=== PATIENT | female | born 1955 | race Caucasian/White ===

== ENCOUNTER 2019-03-31 09:48 | Outpatient (CLI) | payer BC, MEDICARE, SELFPAY ==
--- NOTE | 2019-03-31 09:51 | MM_ITS ---
WS: [id number] RIGHT diagnostic DIGITAL MAMMOGRAM WITH CAD and implant views HISTORY: HX OF BREAST CA COMPARISON: 03/29/2018, 03/23/2017 and 03/10/2016 Technique: CC, MLO and ML views. Implant displacement views. Breast composition: There are scattered areas of fibroglandular density. Prepectoral implants are in tact and unchanged. No suspicious mass or calcification within the visible breast tissue. MM/[place] [id number] IMPRESSION: BI-RADS: 2-Benign FOLLOW UP: 1 Year Follow-up
== END 2019-03-31 09:49 | disposition home or self-care (01) ==
PROVIDERS: Family Provider Family Medicine; PCP Family Medicine; Visit Provider Internal Medicine Medical Oncology
DX: Z85.3 Personal history of malignant neoplasm of breast (principal)
CPT/HCPCS: 77065

== ENCOUNTER 2020-01-19 11:14 | Outpatient (CLI) | payer BC, MEDICARE, SELFPAY ==
--- NOTE | 2020-01-19 12:24 | XR_ITS ---
WS: [id number] XR chest 2V* [id number] REASON FOR EXAM: BREAST CANCER/COUGH/PLEURITIC PAIN FINDINGS: No chest x-rays for review since 07/25/2014. Previous left mastectomy with axillary node dissection. There is a large lobulated left lung mass which appears contiguous with the hilum and the pleura in t he axillary region. There appears to be an infiltrative process in the anterior superior left lower l obe. There is a left pleural effusion. The right lung is clear. XR/XR chest 2V* [id number] IMPRESSION: Left lung mass as above. Somewhat unusual for metastatic breast carcinoma. If p atient has significant smoking history would be concerned about second primary, carcinoma of the lung.
--- NOTE | 2020-01-19 18:31 | ONC FU_ITS ---
Dr. Noe Patient Follow-Up Note Patient: Ann-Marie Rice Unit #: [id number]: 1955 Dicatated By: Tiim Noe M.D.Date of Visit:Jan 19, 2020 Onc Med Follow-up/Prog Note Chief Complaint: Breast cancer. 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 She had presented in May 2009 with a palpable mass in her left breast. Mammogram at that time showed a high density spiculated mass at the twelve o???clock position of the left breast, measuring 1.5 cm in maximum diameter. There was felt to possibly be a focal extension of the mass slightly laterally, measuring 0.8 cm. Two additional small nodules were noted anterior to the larger mass, each measuring approximately 0.5 cm. She underwent biopsy of the twelve o???clock position mass on June 18, 2009. At that time, another mass was palpable at the edge or just underneath the areola. It was also removed by excisional biopsy. Pathology on the first nodule showed a grade II infiltrating ductal carcinoma, measuring 1.7 x 1.0 cm. That tumor was ER positive at 98% and CO positive at 100%. It was negative for overexpression of HER2/isha by IHC and by FISH. The second nodule was felt to be consistent with an infiltrating lobular carcinoma. It measured 1.0 x 0.7 cm. The pathology on the first nodule actually showed two separate tumors, one measuring 1.7 x 1.0 and the other 1.0 x 0.7 cm. This was noted to be a grade II infiltrating ductal carcinoma, which was ER positive at 98% and CO positive at 100%. It was negative for HER2/isha by IHC and by FISH. The other nodule was an infiltrating lobular carcinoma. It measured 2.5 cm in maximum diameter. It was ER positive at 94% and CO positive at 97%. It was also negative for expression of HER2/isha. She underwent left modified radical mastectomy on 08/04/2009. There was micrometastatic ductal carcinoma in 1 of 26 axillary lymph nodes. She was given adjuvant chemotherapy with 6 cycles of Adriamycin/cyclophosphamide, which she completed in January of 2010. She was given adjuvant hormonal therapy with anastrozole. She had ongoing problems with musculoskeletal pain following the chemotherapy. I did have her stop the anastrozole for a short period of time, but that had no impact on her symptoms, and she subsequently did resume treatment. During followup, she did opt to undergo a delayed reconstruction. In July 2014 she had presented to the emergency room with an itchy, erythematous skin eruption. The appearance was consistent with an allergic reaction, which I felt was most likely due to anastrozole. She stopped the medication, and she was treated with steroid. However, the skin eruption did not improve, and she then developed multiple other complaints, including chest congestion, cough, and low-grade fever. Chest xray showed diffuse infiltrate consistent with fluid or pneumonitis. At that point she was admitted to the hospital. She did show some improvement on empiric antibiotic therapy. A skin biopsy showed just mild, nonspecific inflammation. Her serology studies, though, did come back positive for mycoplasma pneumoniae, with elevation of both IgG and IgM antibody titers. She did complete a full course of antibiotic therapy. She had restarted anastrozole when it became clear that her skin eruption was not medication related. She stopped it in January 2015 after completing 5 years of treatment. She was then followed on observation/expectant management. She has otherwise been in good health. She has hypertension, and she has a history of diverticulitis. She also had evidence of osteoporosis on her bone density study. She has a history of smoking 1 pack of cigarettes daily. She had quit for a period of 3 years, but then started again, smoking 1/2 pack per day. She is seen for a scheduled visit. She has not been feeling very good. For the past 3 weeks she has been coughing quite a bit. She has been bringing up some mucus with it. She has been having pain in her left shoulder blade, which is worse when she coughs. She is not short of breath. She does complain that she has no energy. She is still able to do light work at home. Her ECOG score is 1. She says her appetite has not been good, and she has had some nausea associated with the mucus. She has had a 15 pound weight loss. She has not had fever. She has a little bit of hot flashes/sweating. She has some constipation, managed with an herbal laxative. Bladder function has been OK. She also has pain in her lower back and in both legs. She has been having headaches and dizziness. She has no focal neurologic symptoms. Medications: Cyclobenzaprine HCl 1 (5 mg) Tablet Oral b.i.d., Gabapentin 1 (400 mg) Capsule Oral t.i.d., Hydrocodone-Acetaminophen 1 (5-325 mg) Tablet Oral q 6 hours PRN, KlonoPIN 1 (0.5 mg) Tablet Oral daily, Metoprolol Tartrate 1 (50 mg) Tablet Oral b.i.d., PriLOSEC 1 (20 mg) Capsule Delayed Release Oral daily Allergies: codeine and OxyCODONE HCl. Review of Systems: Constitutional - She says she has no energy. She is able to do light work. Appetite is not good. She has not had fever. She has a little bit of hot flashes/sweating. ECOG score is 1. , ENMT - She has some sinus drainage. No mouth sores. No sore throat or difficulty swallowing, Hematologic/Lymphatic - No abnormal bruising or bleeding, Respiratory - No shortness of breath. She has quite a bit of cough. She has pain in the area of the left shoulder blade which is worse when she coughs. No hemoptysis, Cardiovascular - No angina pain. No palpitations, Gastrointestinal - She occasionally has nausea, attributable to mucus. No heartburn or acid reflux. She has constipation, which he manages with an herbal laxative. No blood in the stool or black stools, Genitourinary (F) - No dysuria or hematuria. No urinary frequency. No urgency or incontinence, Musculoskeletal - She has been having pain in the left shoulder blade. She also has pain in her lower back and in both legs, Integumentary - No skin rash, Neurologic - Recently she has had headaches and dizziness. No numbness or tingling. No other focal neurologic symptoms, Psychiatric - She is having some anxiety. She sometimes has difficulty sleeping. Vital Signs: Performed on Jan 19, 2020 11:25 Height - 62.00 in Weight - 159.4 lbs (LOW) BSA - 1.74 sq.m BMI - 29.15 Temperature - 98.7 F Pulse - 84 /min Respiration - 24 /min BP - 114/69 mm(hg) O2 Sat - 95 % (LOW) Pain - 7 Physical Examination: Constitutional - She looks good generally, Eyes - Sclerae nonicteric. Conjunctivae clear, ENMT - No lesions noted in the oral cavity, Hematologic/Lymphatic - No cervical or clavicular adenopathy, Respiratory - Lungs are clear with good air movement bilaterally, Cardiovascular - Heart rhythm is regular. There is no murmur, gallop, or rub noted, Breasts - The right breast shows no mass. There are no lesions noted in the left chest wall/reconstruction. There is no axillary adenopathy, Abdomen - Soft. Liver and spleen are not enlarged. There is no abdominal mass or ascites noted and there is no inguinal adenopathy, Back/Spine - There is some mild tenderness over the thoracic spine and she also has tenderness over the left scapula, Extremities - No edema, Neurologic - No focal neurologic deficits noted. Lab/Imaging: Test performed on Jan 16, 2020 09:31 Glucose 92 mg/dL Vitamin D (25-Hydroxy) 32 ng/mL BUN 14 mg/dL Creatinine 0.73 mg/dL Cr Clearance (Est) 88.87 mL/min Sodium 134 mmol/L Potassium 4.4 mmol/L Chloride 104 mmol/L CO2 23 mmol/L Calcium 10.0 mg/dL Protein, Total 8.2 g/dL Albumin 3.6 g/dL Bilirubin, Total 0.5 mg/dL Alkaline Phosphatase 79 IU/L AST (SGOT) 17 IU/L ALT (SGPT) 20 IU/L WBC 9.1 10^9/L RBC 4.81 10^12/L HGB 14.7 g/dL HCT 44.8 % MCV 93.1 fl MCH 30.6 pg MCHC 32.8 g/dL RDW 12.6 % Platelet Count 309 10^9/L MPV 10.2 fL Neutrophils (Gran) 6.6 10^9/L Lymphocytes 1.8 10^9/L Monocytes 0.6 10^9/L Eosinophils 0.1 10^9/L Basophils 0.0 10^9/L Manual Lymphocytes 20.0 % Manual Monocytes 6.2 % Manual Eosinophils 1.1 % Manual Basophils 0.5 % Impression: 1. Patient has multifocal invasive cancer of the left breast, stage IIB, ER positive/CO negative and HER-2/isha negative. 2. She underwent left modified radical mastectomy in July 2009. 3. She was given adjuvant chemotherapy with 6 cycles of Adriamycin/cyclophosphamide, completed in January 2010. 4. She then received 5 years of adjuvant hormonal therapy with anastrozole, completed in January 2015. She has since then been followed on observation/expectant management. 5. Her DEXA scan in February 2014 showed evidence of osteopenia with T score -1.6 in the lumbar spine. 6. She had laboratory evidence of vitamin D deficiency. Her other medical illnesses include: 8. Hypertension. 9. Osteoporosis. 10. Diverticulitis. During follow-up she has had some chronic fatigue and chronic musculoskeletal pain. Recently she has had cough with associated pleuritic pain in the area of her left shoulder blade. She also has significant weight loss. Plan: She will be scheduled for a chest xray today. Assuming that is negative, just going to have her continue her regular follow-up with Dr. Thompson. As she is now 10 years out from completion of chemotherapy, I will plan to see her again only as needed. Signed By: Timi Noe M.D. <<Signature on File>>
== END 2020-01-19 11:15 | disposition home or self-care (01) ==
LOC: ONCMED 11:17
PROVIDERS: PCP Family Medicine; Visit Provider Internal Medicine Medical Oncology
DX: Z08 Encounter for follow-up examination after completed treatment for malignant neoplasm (principal); Z85.3 Personal history of malignant neoplasm of breast; R91.8 Other nonspecific abnormal finding of lung field; R05 Cough; R07.81 Pleurodynia; R63.4 Abnormal weight loss; Z68.29 Body mass index [BMI] 29.0-29.9, adult; Z90.12 Acquired absence of left breast and nipple; Z92.23 Personal history of estrogen therapy; M85.88 Other specified disorders of bone density and structure, other site; I10 Essential (primary) hypertension; M81.0 Age-related osteoporosis without current pathological fracture; K57.92 Diverticulitis of intestine, part unspecified, without perforation or abscess without bleeding; Z92.21 Personal history of antineoplastic chemotherapy
CPT/HCPCS: 71046; G0463

== ENCOUNTER 2020-01-21 14:58 | Outpatient (CLI) | payer BC, MEDICARE, SELFPAY ==
--- NOTE | 2020-01-21 15:14 | CT_ITS ---
WS: [id number] CT chest w con* [id number] REASON FOR EXAM: BREAST CANCER IV CONTRAST ADMINISTERED: 95 mL of Omnipaque 300. TOTAL EXAM DLP: 689.[address] scans at [facility] use at least one of these dose optimization techniques: automat ed exposure control; mA and/or kV adjustment per patient size (includes targeted exams where dose is matched to clinical indication); or iterative reconstruction. FINDINGS: 5.7 x 5.7 cm intrapulmonary mass with adjacent lung atelectasis/obstructive pneumonia. The lesion jacqueline ears contiguous with the pleura at the level of the aortic arch. There is a moderate to large pleural effusion. There is a second intrapulmonary mass 2.8 x 2.8 cm in the lateral left lower lobe just below the leve l of the larger mass. There are enlarged lymph nodes in the right hilum and in the aortopulmonary window. The nodes that ca n be measured have a short axis of 2 cm. Both lungs demonstrate moderate central lobar emphysema. The bony thorax is intact. Incidental note is made of a 18 mm low-attenuation lesion in the left lobe of the thyroid the shape o f which is consistent with a benign lesion. CT/CT chest w con* [id number] IMPRESSION: 2 left lung masses with dimensions as above. Atelectasis and obstructive pneumo nitis. Left pleural effusion. Adenopathy as above. The appearance of the neoplasia in the left chest is more suggestive of primary lung cancer with ipsilateral lung metastasis and adenopathy. Breast carcinoma, with this being atypical appearance for chest involvement, is a possibility.
[2020-01-21 16:20] LABS: Blood Urea Nitrogen 12 mg/dL (8-23); Glomerular Filtration Rate 84.2 mL/min (90-130)
[2020-01-21] MEDS: iohexol 300 mg/mL 100 mL Btl IV (16:25)
== END 2020-01-21 14:59 | disposition home or self-care (01) ==
LOC: RAD 15:13
PROVIDERS: PCP Family Medicine; Visit Provider Internal Medicine Medical Oncology
DX: C50.919 Malignant neoplasm of unspecified site of unspecified female breast (principal); R91.8 Other nonspecific abnormal finding of lung field; J98.11 Atelectasis; J18.9 Pneumonia, unspecified organism; J90 Pleural effusion, not elsewhere classified
CPT/HCPCS: 71260; 82565; 84520

== ENCOUNTER 2020-01-23 05:48 | Outpatient (CLI) | payer BC, MEDICARE, SELFPAY ==
--- NOTE | 2020-01-23 11:59 | ONC FU_ITS ---
Dr. Noe Patient Follow-Up Note Patient: Ann-Marie Rice Unit #: [id number]: 1955 Dicatated By: Timi Noe M.D.Date of Visit:Jan 23, 2020 Onc Med Follow-up/Prog Note Chief Complaint: Breast cancer. 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 She had presented in May 2009 with a palpable mass in her left breast. Mammogram at that time showed a high density spiculated mass at the twelve o???clock position of the left breast, measuring 1.5 cm in maximum diameter. There was felt to possibly be a focal extension of the mass slightly laterally, measuring 0.8 cm. Two additional small nodules were noted anterior to the larger mass, each measuring approximately 0.5 cm. She underwent biopsy of the twelve o???clock position mass on June 18, 2009. At that time, another mass was palpable at the edge or just underneath the areola. It was also removed by excisional biopsy. Pathology on the first nodule showed a grade II infiltrating ductal carcinoma, measuring 1.7 x 1.0 cm. That tumor was ER positive at 98% and DC positive at 100%. It was negative for overexpression of HER2/isha by IHC and by FISH. The second nodule was felt to be consistent with an infiltrating lobular carcinoma. It measured 1.0 x 0.7 cm. The pathology on the first nodule actually showed two separate tumors, one measuring 1.7 x 1.0 and the other 1.0 x 0.7 cm. This was noted to be a grade II infiltrating ductal carcinoma, which was ER positive at 98% and DC positive at 100%. It was negative for HER2/isha by IHC and by FISH. The other nodule was an infiltrating lobular carcinoma. It measured 2.5 cm in maximum diameter. It was ER positive at 94% and DC positive at 97%. It was also negative for expression of HER2/isha. She underwent left modified radical mastectomy on 08/04/2009. There was micrometastatic ductal carcinoma in 1 of 26 axillary lymph nodes. She was given adjuvant chemotherapy with 6 cycles of Adriamycin/cyclophosphamide, which she completed in January of 2010. She was given adjuvant hormonal therapy with anastrozole. She had ongoing problems with musculoskeletal pain following the chemotherapy. I did have her stop the anastrozole for a short period of time, but that had no impact on her symptoms, and she subsequently did resume treatment. During followup, she did opt to undergo a delayed reconstruction. In July 2014 she had presented to the emergency room with an itchy, erythematous skin eruption. The appearance was consistent with an allergic reaction, which I felt was most likely due to anastrozole. She stopped the medication, and she was treated with steroid. However, the skin eruption did not improve, and she then developed multiple other complaints, including chest congestion, cough, and low-grade fever. Chest xray showed diffuse infiltrate consistent with fluid or pneumonitis. At that point she was admitted to the hospital. She did show some improvement on empiric antibiotic therapy. A skin biopsy showed just mild, nonspecific inflammation. Her serology studies, though, did come back positive for mycoplasma pneumoniae, with elevation of both IgG and IgM antibody titers. She did complete a full course of antibiotic therapy. She had restarted anastrozole when it became clear that her skin eruption was not medication related. She stopped it in January 2015 after completing 5 years of treatment. She was then followed on observation/expectant management. She has otherwise been in good health. She has hypertension, and she has a history of diverticulitis. She also had evidence of osteoporosis on her bone density study. She has a history of smoking 1 pack of cigarettes daily. She had quit for a period of 3 years, but then started again, smoking 1/2 pack per day. She was seen for a scheduled followup visit on 01/19/2020. She had not been feeling very good generally and she reported a 3-week history of cough with pleuritic pain in the area of her left shoulder blade. She did not complain of shortness of breath. She did not appear acutely ill and her lungs sounded clear to auscultation. Her chest x-ray, though, reported a large lobulated left lung mass which appeared contiguous with the hilum and with the pleura in the axillary region. There was associated left pleural effusion. Further evaluation with chest CT on 01/21/2020 confirmed the presence of a 5.7 x 5.7 cm intrapulmonary mass with adjacent lung atelectasis/obstructive pneumonia. The lesion appeared contiguous with the pleura at the level of the aortic arch. A second intrapulmonary mass measuring 2.8 x 2.8 cm was located in the lateral left lower lobe just below the larger mass. Enlarged lymph nodes were noted in the right hilum and in the aortopulmonary window. The largest measured up to 2 cm. Also noted was a moderate to large left pleural effusion. The findings appeared most consistent with primary lung neoplasm. She returns today to discuss the CT findings. She continues to have significant pain in the left upper back, now severe enough that she is having difficulty sleeping. She had to stay in her recliner last night because it was too uncomfortable to try and lie down in bed. She has been taking ibuprofen and Tylenol without significant relief. Medications: Cyclobenzaprine HCl 1 (5 mg) Tablet Oral b.i.d., Gabapentin 1 (400 mg) Capsule Oral t.i.d., Hydrocodone-Acetaminophen 1 (5-325 mg) Tablet Oral q 6 hours PRN, KlonoPIN 1 (0.5 mg) Tablet Oral daily, Metoprolol Tartrate 1 (50 mg) Tablet Oral b.i.d., PriLOSEC 1 (20 mg) Capsule Delayed Release Oral daily Allergies: codeine and OxyCODONE HCl. Vital Signs: Performed on Jan 23, 2020 10:03 Height - 62.00 in Weight - 157.6 lbs (LOW) BSA - 1.73 sq.m BMI - 28.83 Temperature - 97.2 F (LOW) Pulse - 84 /min Respiration - 16 /min BP - 132/77 mm(hg) O2 Sat - 97 % Pain - 0 Impression: 1. Patient with CT evidence of large left lung mass and associated left pleural effusion. Additional findings include a smaller nodule in the lateral left lung just inferior to the larger lesion and associated right hilar and mediastinal adenopathy. The findings are consistent with primary lung neoplasm. 2. She has a history of multifocal invasive cancer of the left breast, stage IIB, ER positive/DC negative and HER-2/isha negative for which she underwent left modified radical mastectomy in July 2009. 3. She was given adjuvant chemotherapy with 6 cycles of Adriamycin/cyclophosphamide, completed in January 2010. 4. She then received 5 years of adjuvant hormonal therapy with anastrozole, completed in January 2015. She has since then been followed on observation/expectant management. 5. Her DEXA scan in February 2014 showed evidence of osteopenia with T score -1.6 in the lumbar spine. 6. She had laboratory evidence of vitamin D deficiency. Her other medical illnesses include: 8. Hypertension. 9. Osteoporosis. 10. Diverticulitis. Plan: The CT findings were reviewed with the patient and her we also reviewed the CT images. She has a large mass in the left lung and a smaller lateral left lung mass just inferior to it. There is associated right hilar and mediastinal adenopathy and a moderate left pleural effusion. The appearance is consistent with primary lung neoplasm which is at least locally advanced. As the mass is noted to approach the hilum, it will likely be accessible by bronchoscopy, and I have arranged for the procedure to be scheduled next week with Dr. Rosales. He also will be sampling the pleural fluid for staging. She is going to need a staging PET/CT, I will try and get that scheduled as well. We discussed the fact that the probability is very high that this is a primary lung neoplasm and that it is already at least locally advanced and inoperable. With associated pleural effusion, her initial treatment will most likely be some form of systemic therapy. She has greatly sent for Covid testing today in preparation for the procedure next week. She will be given a prescription for immediate release oxycodone 5 mg to take 1 or 2 as needed, though she has reservations about opiate pain medication because in the past she had significant side effects with codeine. As such, she also will be given a prescription for gabapentin to take 300 mg up to 3 times a day. She is requesting a prescription for Chantix, and that will be provided as well. [id number] time with patient was more than 30 minutes, greater than 50% spent in counseling/discussion. Signed By: Timi Noe M.D. <<Signature on File>>
== END 2020-01-23 05:49 | disposition home or self-care (01) ==
LOC: ONCMED 05:52
PROVIDERS: PCP Family Medicine; Visit Provider Internal Medicine Medical Oncology
DX: C34.12 Malignant neoplasm of upper lobe, left bronchus or lung (principal); J91.0 Malignant pleural effusion; M85.88 Other specified disorders of bone density and structure, other site; E55.9 Vitamin D deficiency, unspecified; I10 Essential (primary) hypertension; M81.0 Age-related osteoporosis without current pathological fracture; K57.92 Diverticulitis of intestine, part unspecified, without perforation or abscess without bleeding; Z85.3 Personal history of malignant neoplasm of breast; Z90.12 Acquired absence of left breast and nipple; Z92.21 Personal history of antineoplastic chemotherapy; Z79.899 Other long term (current) drug therapy
CPT/HCPCS: 87635; 99214

== ENCOUNTER 2020-01-28 11:09 | Day surgery (SDC) | payer BC, MEDICARE, SELFPAY ==
[2020-01-27 14:39] VITALS: BMI 29.2
[2020-01-28] VITALS (20 sets, daily range): BP systolic 78–126; BP diastolic 55–93; PULSE 68–107; RESP 16–32; TEMP 36.5–36.9; O2SAT 78–97
--- NOTE | 2020-01-28 | CT_ITS ---
Guided Bronchoscopy Planning CT images; total exam DLP: 875.77 mGy-cm MTDD
[2020-01-28] MEDS: sodium chloride 0.9% 1,000 ML 30 ML IV (11:35)
--- NOTE | 2020-01-28 12:15 | ANES.PREANE2 ---
Pre-Anesthetic Assessment Pre-Anesthetic Assessment: Height/Weight: Height 1.55 m Weight 70.307 kg Temp Pulse Resp BP Pulse Ox 97.7 F 94 18 112/77 93 01/28/20 11:28 01/28/20 11:28 01/28/20 11:28 01/28/20 11:28 01/28/20 11:28 Preop Diagnosis: Suspected lung cancer Proposed Procedure: Operation Date: 01/28/20 12:10 Proposed Procedures p Mima [id number] R91.1(Not Applicable) - Sandoval Rosales MD Was Beta Robby taken within 24 hours: Yes Last intake: Intake Last Liquid Date 01/27/20 Last Liquid Time 18:00 Last Solid Date 01/20/20 Last Solid Time 12:00 Social: Social History: No alcohol and No tobacco Exam: Pre-Anes Outpt Exam: alert, oriented x 3, clear to auscultation bilaterally and regular rate & rhythm Airway: Submandibular: WNL Cervical ROM: WNL MP: 2 Dentition: Full Pulmonary: Pulmonary: Cough Comments: Lung CA, cough CV/HEM: CV/HEM: HTN : : None reported Hepatic: Hepatic: None reported GI: GI: None reported Metabolic: Metabolic: None reported Musc/skel: Musc/skel: None reported Neuropsych: Neuropsych: None reported Anesthetic Plan: ASA status: 3 Anesthesia: General Risk of > 500 ml blood loss (7ml/kg in children): No PFSH Anesthesia PFSH: Medical History (Updated 01/26/20 @ 16:55 by Sandoval Rosales MD) Age related osteoporosis Breast cancer Diverticula of colon HTN (hypertension) Lung nodule Surgical History (Updated 01/26/20 @ 16:48 by Sandoval Rosales MD) H/O mastectomy Social History Smoking and tobacco status: current every day smoker cigarettes Years cigarettes smoked: 51 [ Other cigarette details: Hx of 0.5 PPD x 51 Years ] Quit status (tobacco): considering quitting Second hand smoke exposure: Yes Smoking risk assessment/counseling performed?: Yes Alcohol intake: never Lives independently: Yes Household members: spouse Marital status: Current occupational status: disabled History of recent travel: No Current gender identity: Female Data Anesthesia Cardiac Studies: No Data to Display
--- NOTE | 2020-01-28 12:16 | W.PM.OPSUD ---
Surgery/Procedure H&P Update DATE OF PROCEDURE: January 28, 2020 DATE H&P PERFORMED: 01/26/20 H&P UPDATE INFORMATION: I have reviewed H&P completed within last 30 days, I have examined patient prior to procedure and No changes to prior documentation PREOP DIAGNOSIS: Suspected lung cancer PLANNED PROCEDURE: Bronchoscopy with inspection of the airway, possible endobronchial biopsies, navigational bronchoscopy guided transbronchial biopsies of the left upper lobe lung mass, endobronchial sound guided transbronchial needle aspiration of lymph nodes. Operation Date: 01/28/20 12:10 Proposed Procedures cameron Guillermo [id number] R91.1(Not Applicable) - Biplab MD Bobby
[2020-01-28] MEDS: EPINEPHrine 1 mg/mL INJ XX (13:42)
--- NOTE | 2020-01-28 13:42 | PM.OP ---
Operative Report Date of procedure: January 28, 2020 Pre-op Diagnosis: Suspected lung cancer Post-op diagnosis: same Brief History: This is a 64-year-old lady with suspected lung cancer coming in for bronchoscopic evaluation and left-sided thoracentesis Procedure: Name of the procedure: Bronchoscopy with inspection of the airway, navigational bronchoscopy guided core needle biopsy of the left upper lobe lung mass, fine-needle aspiration, endobronchial ultrasound-guided transbronchial needle aspiration of lymph nodes and control of bleeding. Indication: Suspected lung cancer Anesthesia: General anesthesia. Local anesthesia: The arlene in the right and left mainstem bronchi were anesthetized with 1% lidocaine, 3 mL. Description of the procedure: The procedure was explained to the patient and the consent was obtained. The patient was brought to the OR. The patient underwent endotracheal intubation for general anesthesia. Following induction of general anesthesia, the bronchoscope was advanced through the ET tube. The lower trachea appeared to be normal. The arlene was sharp. The arlene, the right and left mainstem bronchi are anesthetized with 1% lidocaine. In a systematic manner bilateral bronchial tree was then examined. The bronchoscope was advanced into the left mainstem bronchus. There was narrowing of the left mainstem bronchus, entrance to the left upper lobe, lingula and lower lobe bronchus by external compression. There was also mucosal edema. No endobronchial lesion was identified. The bronchoscope was then introduced into the right mainstem bronchus. The right upper lobe, right middle lobe and right lower lobe bronchi were examined up to the third subsegmental level and no abnormalities were identified. Using navigational bronchoscopy, core needle biopsies were performed from the left upper lobe lung mass. Multiple samples were obtained. The endobronchial ultrasound was introduced through the ET tube. Left hilar mass was identified, there was lymphadenopathy in the subcarinal area as well. Transbronchial needle aspirations were performed from the left hilar mass and subcarinal lymph node. At the end of the procedure there was no significant bleeding. Samples: 1. The core needle biopsy and FNAs from the left upper lobe lung mass were sent for cytology and histopathology 2. Transbronchial needle aspiration from the left hilar mass and station seven were sent for histopathology and cytology. Complications: There was no immediate complications. Chest x-ray: Pending
--- NOTE | 2020-01-28 13:45 | PM.OP ---
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 Procedure: Name of the procedure: Left thoracentesis. Indication: Suspicion for malignant pleural effusion Anesthetics: The patient was under general anesthesia in preparation for the bronchoscopic evaluation Description of the procedure: The procedure was explained to the patient in detail including the risks and a consent was obtained. The left hemithorax was scanned with ultrasound to find a safe fluid pocket. Moderate loculated fluid with fibrin stranding was noted. Following identification of the fluid pocket the site was marked. After the patient underwent general anesthesia, pleural fluid was aspirated. 25 mL of sample was obtained. Sample: The pleural fluid was sent for cell count and differential, pH, protein, LDH, Gram stain and culture, and cytology. Postprocedure chest x-ray is pending.
--- NOTE | 2020-01-28 13:48 | XRR_ITS ---
PROCEDURE INFORMATION: Exam: XR Chest, 1 View Exam date and time: 01/28/2020 2:03 PM Age: 64 years old Clinical indication: Screening exam; Other screening; Prior surgery; Surgery date: Post-operative (0-2 days); Surgery type: Post bronch; Additional info: Post bronchoscopy TECHNIQUE: Imaging protocol: XR of the chest Views: 1 view. COMPARISON: CT chest w con* [id number] 01/21/2020 4:16 PM FINDINGS: Lungs: There is complete opacity throughout the left lung corresponding to postsurgical changes. The right lung is clear. Pleural space: Unremarkable. No pleural effusion. No pneumothorax. Heart/Mediastinum: Heart mediastinum are displaced into the left hemithorax and are not visible. Bones/joints: Unremarkable. Metallic surgical clips seen in the left axillary soft tissues. XR/XR chest 1V portable [id number] IMPRESSION: 1. Postsurgical changes left hemithorax. 2. Otherwise negative for acute abnormality 3. Metallic surgical clips left axilla
[2020-01-28] MEDS: ipratropium-albuterol 3 mL Neb INHALATION (14:02)
--- NOTE | 2020-01-28 14:05 | SUR.OPER ---
EBUS BALLOON REMOVED INTACT.
--- NOTE | 2020-01-28 14:09 | SUR.PHASEI ---
PT WITH DUONEB IN PLACE RESP THERAPY HERE WITH CHEST VEST PLACED TO PT PT SHA WELL, SATS 96%
--- NOTE | 2020-01-28 14:22 | SUR.PHASEI ---
PT SITTING AT 40 DEGREES , GOOD RESP EFFORT, SEE EARLIER DUONEB GIVEN PER DR PASTOR AT BEDSIDE, PT WITH RHONCHI TO RT UPPER AN DLOWER LOBE SCATTERED EXP WHEEZE NOTED LT LUNG NO BREATH SOUNDS TO LT LOWER, SOME UPPER AIRWAY RHONCH, CHEST VEST FINISHED PT TO BE WATCHED IN OPS. AND REPEAT X RAY BEFOR GOING HOME.
--- NOTE | 2020-01-28 14:40 | ANE.PACU2 ---
Inpatient post-anesthesia follow up: Airway intact: Yes Vital signs: Temperature 98.5 F Pulse Rate 103 Respiratory Rate 22 Blood Pressure 109/93 Pulse Oximetry 96 Oxygen Delivery Me thod Nasal Cannula Oxygen Flow Rate 2 Fraction of Inspir ed Oxygen Hydration adequate: Yes Nausea and vomiting: No Pain level: 2 Mental status: Baseline
--- NOTE | 2020-01-28 14:45 | SUR.PHASEI ---
1436 PT TO OPS AWAKE ALERT ASKING FOR WATER SATS 95% ON2LNC, NO DISTRESS STILL NO LLUNG SOUNDS TO LT LOWER. DR PASTOR AWARE PT IN OPS WILL GET X RAY BEFORE DISCHARGE. DR PASTOR VERBALIZED OK FOR HER TO HAVE SIPS OF WATER.
[2020-01-28 14:52] LABS: Mononuclear %, Pleural Fluid 91 %; Polynuclear Cells, Pleural % 10 %
[2020-01-28 15:31] LABS: Appearance, Pleural Fluid CLEAR (CLEAR); Color, Pleural Fluid Pale Yellow (Pale Yellow)
[2020-01-28 15:39] LABS: PATH Referal YES
--- NOTE | 2020-01-28 15:50 | XRR_ITS ---
PROCEDURE INFORMATION: Exam: XR Chest, 1 View Exam date and time: 01/28/2020 3:57 PM Age: 64 years old Clinical indication: Device placement; Other: Post bronch; Prior surgery; Surgery date: Post-operative (0-2 days); Additional info: Post bronchoscopy TECHNIQUE: Imaging protocol: XR of the chest Views: 1 view. COMPARISON: CR XR chest 1V portable [id number] 01/28/2020 2:00 PM FINDINGS: Lungs: There is complete opacity and volume loss in the left hemithorax. This finding is similar to prior. The right lung is expanded and clear. Pleural space: Unremarkable. No pleural effusion. No pneumothorax. Heart/Mediastinum: Shifted into the left hemithorax and are not visualized. Bones/joints: Unremarkable. XR/XR chest 1V portable [id number] IMPRESSION: Stable opacification and volume loss left hemithorax The heart and mediastinum are shifted into the left hemithorax Negative right lung
[2020-01-28 16:31] LABS: LDH Pleural Fluid 387 U/L; Total Protein Pleural Fluid 4.7 g/dL
--- NOTE | 2020-01-28 19:21 | SUR.PHASEII ---
patient discharged with home O2 from [facility].
== END 2020-01-28 19:20 | disposition home or self-care (01) ==
PROVIDERS: PCP Family Medicine; Visit Provider Internal Medicine Critical Care Medicine
PROC: 0BJ08ZZ Inspection of Tracheobronchial Tree, Via Natural or Artificial Opening Endoscopic (ICD-10-PCS; CPT 31622; principal; 2020-01-28 12:00)
PROC: BB4BZZZ Ultrasonography of Pleura (ICD-10-PCS; CPT 32554; 2020-01-28 12:00)
DX: J90 Pleural effusion, not elsewhere classified (principal); C34.90 Malignant neoplasm of unspecified part of unspecified bronchus or lung; I10 Essential (primary) hypertension; M81.0 Age-related osteoporosis without current pathological fracture; Z85.3 Personal history of malignant neoplasm of breast; F17.210 Nicotine dependence, cigarettes, uncomplicated; Z92.21 Personal history of antineoplastic chemotherapy
CPT/HCPCS: 32554; 12345; 71045; 77011; 80500; 82945; 83615; 83986; 84157; 87070; 87075; 87205; 88112; 88305; 89050; 94669; J0171; J0330; J2370; J2704; J3010; J3490; J7030

== ENCOUNTER 2020-01-29 13:33 | Outpatient (CLI) | payer BC, MEDICARE, SELFPAY ==
--- NOTE | 2020-01-29 13:36 | XR_ITS ---
WS: [id number] CHEST 2 VIEWS HISTORY: C34.90 - Malignant neoplasm of unspecified part of unspecified bronchus or lung COMPARISON: 01/28/2020 Lungs: Area of dense consolidation involving a large portion of the LEFT thorax. Small amount of aera siria lung at the apex with interstitial thickening and edema. Better aeration throughout the RIGHT terry g with less edema. Cardiac size: Obscured by the large area of consolidation and fluid in the LEFT thorax. Mediastinum/Aorta: Partially obscured by the opacification throughout the LEFT thorax. Bones: Osteopenia. Prior LEFT axillary baldemar dissection. XR/XR chest 2V* [id number] IMPRESSION: 1. Large area of dense consolidation throughout the LEFT thorax is a combinati on of soft tissue mass from the known neoplasm and pleural fluid. Little aerate d lung at the LEFT apex. 2. Chronic emphysema RIGHT lung.
== END 2020-01-29 13:34 | disposition home or self-care (01) ==
LOC: RAD 13:36
PROVIDERS: PCP Family Medicine; Visit Provider Internal Medicine Critical Care Medicine
DX: C34.90 Malignant neoplasm of unspecified part of unspecified bronchus or lung (principal); J43.9 Emphysema, unspecified
CPT/HCPCS: 71046

== ENCOUNTER 2020-02-02 12:23 | Outpatient (CLI) | payer BC, MEDICARE, SELFPAY ==
--- NOTE | 2020-02-02 12:36 | XR_ITS ---
WS: [id number] Exam: XR chest 2V* [id number] Date/Time of Exam: 02/02/2020 12:36 PM Reason For Exam: evaluate collapsed lung Comparison 01/29/2020. Again noted is an extensive area of the consolidation in the left pleural cavity which has worsened i n the region of the left upper lobe since the prior study. Very little of the left upper lung is vent ilated. Right lung is clear and fully expanded. Status post left mastectomy. Bony structures are inta ct. Left axillary baldemar dissection. XR/XR chest 2V* [id number] IMPRESSION: 1. Almost complete white out of the left pleural cavity which may be due to a m ass, pulmonary consolidation and/or pleural effusion. This has worsened with on ly a small portion of the left upper lobe being ventilated. 2. The right lung remains clear and fully inflated.
== END 2020-02-02 12:24 | disposition home or self-care (01) ==
PROVIDERS: PCP Family Medicine; Visit Provider Internal Medicine Critical Care Medicine
DX: J98.19 Other pulmonary collapse (principal)
CPT/HCPCS: 71046

== ENCOUNTER 2020-02-03 13:34 | Outpatient (CLI) | payer BC, MEDICARE, SELFPAY ==
--- NOTE | 2020-02-03 16:04 | ONC FU_ITS ---
Dr. Noe Patient Follow-Up Note Patient: Ann-Marie Rice Unit #: [id number]: [id number] Dicatated By: Timi Noe M.D.Date of Visit:Feb 03, 2020 Telehealth Progress Note The patient has been informed that the visit may not be secure and acknowledged the information. I have explained the option of participating in a telephone or video visit during the [facility] emergency to the patient. After being given an opportunity to ask questions about and discuss this type of visit, the patient verbally consented to proceeding with the telephone/video visit. the patient understands that this service replaces an office visit and they may be billed and /or responsible for any applicable copayments Chief Complaint: Breast cancer/lung cancer. 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 She has now been diagnosed with non-small cell carcinoma involving the upper lobe of the left lung, by clinical evaluation stage at least NEHAL (T4, N3, M1a). She had presented in May 2009 with a palpable mass in her left breast. Mammogram at that time showed a high density spiculated mass at the twelve o???clock position of the left breast, measuring 1.5 cm in maximum diameter. There was felt to possibly be a focal extension of the mass slightly laterally, measuring 0.8 cm. Two additional small nodules were noted anterior to the larger mass, each measuring approximately 0.5 cm. She underwent biopsy of the twelve o???clock position mass on June 18, 2009. At that time, another mass was palpable at the edge or just underneath the areola. It was also removed by excisional biopsy. Pathology on the first nodule showed a grade II infiltrating ductal carcinoma, measuring 1.7 x 1.0 cm. That tumor was ER positive at 98% and ND positive at 100%. It was negative for overexpression of HER2/isha by IHC and by FISH. The second nodule was felt to be consistent with an infiltrating lobular carcinoma. It measured 1.0 x 0.7 cm. The pathology on the first nodule actually showed two separate tumors, one measuring 1.7 x 1.0 and the other 1.0 x 0.7 cm. This was noted to be a grade II infiltrating ductal carcinoma, which was ER positive at 98% and ND positive at 100%. It was negative for HER2/isha by IHC and by FISH. The other nodule was an infiltrating lobular carcinoma. It measured 2.5 cm in maximum diameter. It was ER positive at 94% and ND positive at 97%. It was also negative for expression of HER2/isha. She underwent left modified radical mastectomy on 08/04/2009. There was micrometastatic ductal carcinoma in 1 of 26 axillary lymph nodes. She was given adjuvant chemotherapy with 6 cycles of Adriamycin/cyclophosphamide, which she completed in January of 2010. She was given adjuvant hormonal therapy with anastrozole. She had ongoing problems with musculoskeletal pain following the chemotherapy. I did have her stop the anastrozole for a short period of time, but that had no impact on her symptoms, and she subsequently did resume treatment. During followup, she did opt to undergo a delayed reconstruction. In July 2014 she had presented to the emergency room with an itchy, erythematous skin eruption. The appearance was consistent with an allergic reaction, which I felt was most likely due to anastrozole. She stopped the medication, and she was treated with steroid. However, the skin eruption did not improve, and she then developed multiple other complaints, including chest congestion, cough, and low-grade fever. Chest xray showed diffuse infiltrate consistent with fluid or pneumonitis. At that point she was admitted to the hospital. She did show some improvement on empiric antibiotic therapy. A skin biopsy showed just mild, nonspecific inflammation. Her serology studies, though, did come back positive for mycoplasma pneumoniae, with elevation of both IgG and IgM antibody titers. She did complete a full course of antibiotic therapy. She had restarted anastrozole when it became clear that her skin eruption was not medication related. She stopped it in January 2015 after completing 5 years of treatment. She was then followed on observation/expectant management. She has otherwise been in good health. She has hypertension, and she has a history of diverticulitis. She also had evidence of osteoporosis on her bone density study. She has a history of smoking 1 pack of cigarettes daily. She had quit for a period of 3 years, but then started again, smoking 1/2 pack per day. She was seen for a scheduled followup visit on 01/19/2020. She had not been feeling very good generally and she reported a 3-week history of cough with pleuritic pain in the area of her left shoulder blade. She did not complain of shortness of breath. She did not appear acutely ill and her lungs sounded clear to auscultation. Her chest x-ray, though, reported a large lobulated left lung mass which appeared contiguous with the hilum and with the pleura in the axillary region. There was associated left pleural effusion. Further evaluation with chest CT on 01/21/2020 confirmed the presence of a 5.7 x 5.7 cm intrapulmonary mass with adjacent lung atelectasis/obstructive pneumonia. The lesion appeared contiguous with the pleura at the level of the aortic arch. A second intrapulmonary mass measuring 2.8 x 2.8 cm was located in the lateral left lower lobe just below the larger mass. Enlarged lymph nodes were noted in the right hilum and in the aortopulmonary window. The largest measured up to 2 cm. Also noted was a moderate to large left pleural effusion. The findings appeared most consistent with primary lung neoplasm. On 01/28/2020 she underwent navigational bronchoscopy with guided core needle biopsy of the left upper lobe lung mass and EBUS with transbronchial FNA biopsy of left hilar and subcarinal lymph nodes. Subsequent to that procedure she also underwent thoracentesis. The bronchoscopy showed narrowing of the left mainstem bronchus, entrance to the left upper lobe, lingula, and lower lobe bronchus by external compression. There was no endobronchial lesion identified. The core needle biopsy was nondiagnostic. The FNA biopsy showed groups of atypical cells which were felt to be suspicious for malignancy. Additional studies are pending. In the meantime, the pleural fluid cytology did come back positive for large cell carcinoma. She is seen for a follow-up visit by Telehealth. Her breathing has continued to worsen since her visit 2 weeks ago. She is now oxygen dependent and she has virtually no activity. She complains of having nasal congestion which makes it difficult to breathe through her nose, and she also complains now that her mouth is getting dry. Her chest x-ray yesterday showed almost complete white out of the left pleural cavity which potentially could be due to mass, pulmonary consolidation, and/or pleural effusion. There was only a small portion of left upper lobe being ventilated. The right lung was noted to remain clear and fully inflated. Medications: Cyclobenzaprine HCl 1 (5 mg) Tablet Oral b.i.d., Gabapentin 1 (400 mg) Capsule Oral t.i.d., Hydrocodone-Acetaminophen 1 (5-325 mg) Tablet Oral q 6 hours PRN, KlonoPIN 1 (0.5 mg) Tablet Oral daily, Metoprolol Tartrate 1 (50 mg) Tablet Oral b.i.d., PriLOSEC 1 (20 mg) Capsule Delayed Release Oral daily Allergies: codeine and OxyCODONE HCl. Impression: 1. 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 There is associated malignant left pleural effusion. By clinical evaluation her disease is stage at least NEHAL (T4, N3, M1a) 2. She has a history of multifocal invasive cancer of the left breast, stage IIB, ER positive/ND negative and HER-2/isha negative for which she underwent left modified radical mastectomy in July 2009. 3. She was given adjuvant chemotherapy with 6 cycles of Adriamycin/cyclophosphamide, completed in January 2010. 4. She then received 5 years of adjuvant hormonal therapy with anastrozole, completed in January 2015. She has since then been followed on observation/expectant management. 5. Her DEXA scan in February 2014 showed evidence of osteopenia with T score -1.6 in the lumbar spine. 6. She had laboratory evidence of vitamin D deficiency. Her other medical illnesses include: 8. Hypertension. 9. Osteoporosis. 10. Diverticulitis. The pathology results were reviewed with the patient and her . The FNA biopsy show atypical cells which are suspicious for malignancy, and further analysis is pending. The pleural fluid cytology, however, is positive for large cell carcinoma, consistent with locally advanced non-small cell lung cancer. By clinical evaluation her disease is stage at least NEHAL. Her symptoms have worsened rather quickly, and she is now oxygen dependent. Her chest x-ray yesterday showed near complete whiteout of the left hemithorax. Plan: In view of the chest x-ray findings, she is planned to have a repeat thoracentesis this week. She will need to continue her staging evaluation with PET/CT at some point she also will need a brain MRI. It appears unlikely that we will be able to obtain complete pathologic analysis from the biopsy specimens. As such, I am planning to obtain a next generation sequencing study by liquid biopsy. However, with her symptoms continue to worsen, I am going to proceed with a trial of systemic therapy with carboplatin/pemetrexed chemotherapy in combination with pembrolizumab. To that end she also is going to require placement of Port-A-Cath for venous access. Signed By: Timi Noe M.D. <<Signature on File>>
== END 2020-02-03 13:35 | disposition home or self-care (01) ==
LOC: ONCMED 13:34
PROVIDERS: PCP Family Medicine; Visit Provider Internal Medicine Medical Oncology
DX: C34.12 Malignant neoplasm of upper lobe, left bronchus or lung (principal); I10 Essential (primary) hypertension; M81.0 Age-related osteoporosis without current pathological fracture; F17.210 Nicotine dependence, cigarettes, uncomplicated; J91.0 Malignant pleural effusion; K57.92 Diverticulitis of intestine, part unspecified, without perforation or abscess without bleeding; Z85.3 Personal history of malignant neoplasm of breast; Z90.12 Acquired absence of left breast and nipple; Z92.23 Personal history of estrogen therapy; Z99.81 Dependence on supplemental oxygen; Z92.21 Personal history of antineoplastic chemotherapy

== ENCOUNTER → 2020-02-04 08:29 | Day surgery (SDC) | payer BC, MEDICARE, SELFPAY ==
[2020-02-04 08:55] VITALS: BP 127/76; PULSE 114; RESP 22; TEMP 36.1; O2SAT 83; BMI 28.3
--- NOTE | 2020-02-04 09:01 | PC.NURSE ---
PT PRESENTED WITHO2 SAT 83% ON 5 L. PLACED SIMPLE MASK AT 10 L NC. O2 SAT 89%.
[2020-02-04 09:30] VITALS: BP 127/80; PULSE 119; RESP 18; O2SAT 93
--- NOTE | 2020-02-04 10:18 | PC.NURSE ---
1015-AFTER SEVERAL ATTEMPTS IS UNABLE TO GET FLUID. PROCEDURE ABORTED AT THIS TIME.
[2020-02-04 10:19] VITALS: BP 121/75; PULSE 117; RESP 22; O2SAT 87
--- NOTE | 2020-02-04 10:45 | XR_ITS ---
WS: [id number] Exam: XR chest 1V portable [id number] Date/Time of Exam: 02/04/2020 10:47 AM Reason For Exam: PLEURAL EFFUSION Comparison 02/02/2020. Again noted is almost total white out of the left pleural cavity with without significant change sinc e previous exam. Surgical clips in the left axilla. The right lung remains fully inflated and clear. XR/XR chest 1V portable [id number] IMPRESSION: 1. Almost complete white out of the left pleural cavity that could represent pl eural effusion, mass or consolidating infiltrate. Overall, no change.
--- NOTE | 2020-02-04 10:54 | P.OP_ITS ---
Operative Report Date of procedure: February 04, 2020 Pulmonary & Critical Care Medicine Procedure - Thoracentesis Procedure: Thoracentesis Indication: left complicated Pleural effusion Rock Dust Sprayer(s): Micky Harding MD Consent: Signed and placed in chart Anesthesia: 10 cc 1% lidocaine without epinephrine Description: left pleural effusion was localized using ultrasound guidance and the site was marked accordingly. After chlorhexidine skin prep, area was draped in a sterile manner. 1% lidocaine was used for local anesthesia. Thoracentesis catheter was then inserted into the pleural space but could only aspirate 10 ml blood. Unable to pass catheter. procedure aborted. I suspect catheter went to one of the small locules. Ultrasound guidance used: yes . Image saved to ultrasound machine yes EBL: 10 cc Complications: None PCXR: Almost complete white out of the left pleural cavity that could represent pleural effusion, mass or consolidating infiltrate. Overall, no change compared to previous chest x ray. Pre-op Diagnosis: Suspected malignant pleural effusion
== END ==
PROVIDERS: PCP Family Medicine; Visit Provider Internal Medicine Pulmonary Disease
DX: J90 Pleural effusion, not elsewhere classified (principal)
CPT/HCPCS: 32554; 12345; 71045

== ENCOUNTER 2020-02-09 10:57 | Outpatient (CLI) | payer BC, MEDICARE, SELFPAY | END 2020-02-09 10:58 | disposition home or self-care (01) | LOC: ONCMED 11:06 | PROVIDERS: PCP Family Medicine; Visit Provider Internal Medicine Medical Oncology | DX: C34.12 Malignant neoplasm of upper lobe, left bronchus or lung (principal); R91.8 Other nonspecific abnormal finding of lung field; Z85.3 Personal history of malignant neoplasm of breast; C50.812 Malignant neoplasm of overlapping sites of left female breast; Z17.0 Estrogen receptor positive status [ER+]; Z90.12 Acquired absence of left breast and nipple; I10 Essential (primary) hypertension | CPT/HCPCS: 84443 ==

== ENCOUNTER 2020-02-09 11:55 | Outpatient (CLI) | payer BC, MEDICARE, SELFPAY ==
--- NOTE | 2020-02-09 13:31 | XRR_ITS ---
PROCEDURE INFORMATION: Exam: XR Chest, 1 View Exam date and time: 02/09/2020 1:32 PM Age: 64 years old Clinical indication: Device placement; Picc; Additional info: Picc placement TECHNIQUE: Imaging protocol: XR of the chest Views: 1 view. COMPARISON: CR XR chest 1V portable [id number] 02/04/2020 10:41 AM FINDINGS: Tubes, catheters and devices: Termination of right PICC line in the region of the superior vena cava. Lungs: Hyperinflation and interstitial prominence in the right lung. Progressive and near complete opacification of the left lung. Heart/Mediastinum: Obscuration of the left heart border. Calcified mediastinal lymph node. Bones/joints: Degenerative change and mild scoliosis. Soft tissues: Surgical clips in the left axilla. XR/XR chest 1V portable [id number] IMPRESSION: 1. Termination of right PICC line in the region of the superior vena cava. 2. Progressive and near complete opacification of the left lung.
[2020-02-09 14:28] LABS: Basophils % 0.4 %; Eosinophils # 0.1 10^3/uL (0.0-0.8); Hematocrit 29.2 % (37.0-47.0); Hemoglobin 9.4 g/dL (11.5-15.3); Lymphocytes # 1.3 10^3/uL (0.8-4.8); Lymphocytes % 12.1 %; Mean Corpuscular HGB Conc 32.2 g/dL (30.0-36.0); Mean Corpuscular Hemoglobin 28.9 pg (28.0-34.0); Mean Corpuscular Volume 89.8 fL (81-99); Mean Platelet Volume 10.6 fL (7.4-10.4); Monocytes # 0.8 10^3/uL (0.2-0.9); Monocytes % 7.7 %; Neutrophils # 8.34 10^3/uL (1.8-7.7); Nucleated Red Blood Cells % 0 %; Platelet Count 294 10^3/cmm (130-400); Red Blood Count 3.25 10^6/uL (4.1-5.3); Red Cell Distribution Width 12.6 % (12.1-15.1); White Blood Count 10.7 10^3/uL (4.0-10.0)
[2020-02-09 14:44] LABS: Alanine Aminotransferase 17 U/L (0-33); Albumin Level 2.8 g/dL (3.5-5.2); Alkaline Phosphatase 97 IU/L (35-105); Aspartate Amino Transferase 19 U/L (0-32); Blood Urea Nitrogen 10 mg/dL (8-23); Calcium 8.7 mg/dL (8.5-10.5); Carbon Dioxide 26 mmol/L (22-29); Chloride 93 mmol/L (98-107); Globulin 3.9 g/dL (1.3-4.6); Glomerular Filtration Rate 160.7 mL/min (90-130); Glucose 115 mg/dL (65-115); Osmolality Calculated 270 mOsm/kg (285-295); Sodium 130 mmol/L (136-145); Total Bilirubin 0.5 mg/dL (0.15-1.2); Total Protein 6.7 g/dL (6.6-8.7)
[2020-02-09 14:48] LABS: Anion Gap 15.3 (5-19); Potassium 4.3 mmol/L (3.5-5.1)
== END 2020-02-09 11:56 | disposition home or self-care (01) ==
PROVIDERS: PCP Family Medicine; Visit Provider Internal Medicine Medical Oncology
DX: C50.812 Malignant neoplasm of overlapping sites of left female breast (principal); C34.12 Malignant neoplasm of upper lobe, left bronchus or lung
CPT/HCPCS: 36569; 36592; 71045; 80053; 85025

== ENCOUNTER 2020-02-12 09:30 | Outpatient (RCR) | payer BC, MEDICARE, SELFPAY ==
[2020-02-10] MEDS: sodium chloride 0.9% 250 ML 999 ML IV (11:30)
[2020-02-10] MEDS: palonosetron 0.25 mg/5 mL SDV IV (11:30)
[2020-02-10] MEDS: famotidine 20 mg/2 mL INJ IVP (11:32)
[2020-02-10] MEDS: diphenhydrAMINE 50 mg/mL SDV 1mL 25 MG IV (11:34)
[2020-02-10] MEDS: cyanocobalamin 1,000 mcg/mL SDV 1000 MCG SUBCUT (11:50)
== END 2020-03-07 23:59 | disposition home or self-care (01) ==
LOC: ONCMED 09:30
PROVIDERS: PCP Family Medicine; Visit Provider Nurse Practitioner
DX: Z51.11 Encounter for antineoplastic chemotherapy (principal); C34.12 Malignant neoplasm of upper lobe, left bronchus or lung; J91.0 Malignant pleural effusion; M81.0 Age-related osteoporosis without current pathological fracture; E55.9 Vitamin D deficiency, unspecified
CPT/HCPCS: 96367; 96372; 96375; 96413; 96417; J1100; J1200; J1453; J2469; J3420; J3490; J7050; J9045; J9271; J9305

== ENCOUNTER 2020-02-12 09:43 | Outpatient (CLI) | payer BC, MEDICARE, SELFPAY ==
--- NOTE | 2020-02-12 10:30 | XR_ITS ---
WS: [id number] Left femur and thigh, AP and lateral, 02/12/2020 Clinical Data: LEFT LEG PAIN Comparison: None. Findings: No fractures or dislocations are seen. The soft tissues are normal. The visualized knee shows no abno rmalities. No metastatic lesions are seen. There is a calcification adjacent to the left ilium which may represe nt old trauma. XR/XR femur LT min 2V* [id number] Impression: Negative left femur and thigh.
--- NOTE | 2020-02-12 10:30 | XR_ITS ---
WS: [id number] Pelvis, AP view, 02/12/2020 Clinical Data: BREAST CA/NON SMALL LUNG CA/LEFT LEG PAIN Comparison: PET scan, 02/07/2020 Findings: No fractures or dislocations are seen. The SI joints and pubic symphysis are intact. The soft tissues are not remarkable. The hips show no abnormalities. The metastatic lesions which were seen on the PET scan in the right sacrum and right superior ischiop ubic ramus are not visualized on this examination. XR/XR pelvis 1-2V* [id number] Impression: Negative for fracture and visualization of the patient's metastatic disease.
== END 2020-02-12 09:44 | disposition home or self-care (01) ==
PROVIDERS: PCP Family Medicine; Visit Provider Internal Medicine Medical Oncology
DX: M79.605 Pain in left leg (principal); C50.812 Malignant neoplasm of overlapping sites of left female breast; C34.12 Malignant neoplasm of upper lobe, left bronchus or lung
CPT/HCPCS: 72170; 73552

== ENCOUNTER 2020-02-14 11:49 | Emergency (ER) | payer BC, MEDICARE, SELFPAY ==
[2020-02-14 11:54] VITALS: BMI 28.3
--- NOTE | 2020-02-14 12:11 | PC.NURSE ---
see paper Code Sheet
--- NOTE | 2020-02-14 12:16 | ED_ITS ---
HPI - CPR General: Chief Complaint: Cardiac Arrest/CPR Stated Complaint: CPR IN PROGRESS Time Seen by Provider: 02/14/20 11:58 History of Present Illness: HPI narrative: The patient is a 64-year-old female with past medical history breast cancer that had been cleared for 10 years and now recently diagnosed with a large lung mass. She came in CODE BLUE after using the bathroom and when she got off the toilet she passed out at 11 AM. Her started CPR on her immediately and ambulance arrived 15 minutes later. They intubated her and followed standard ACLS protocol and arrived to the ER at 1150. They had asystole during their entire transport and they think early in the code they possibly had V. fib one time and shocked her with asystole at the next check. On arrival she is in asystole and pulseless. Abdomen distended. The ET tube from EMS was pulled and I intubated her with a 7.5 ET tube 22 at the teeth on first attempt using video laryngoscopy. She was given several epinephrine during her time here however remained asystole and pulseless. After several rounds of CPR time of was called at 24 as efforts are futile and it has been longer than an hour in asystole. The patient's was notified in vertical flow area and brought to see her by myself. complaint: collapsed during activity Timing confirmed by: spouse Place: home Bystander CPR performed: Yes AED applied by bystander/laundry operator finishing: Yes Shock advised: No Number of shocks delivered: 1 Downtime before ACLS arrival (mins): 0 Initial findings in the field: unresponsive, no respirations, no pulse and other rhythm (asystole) ROSC in the field: No Associated injuries: No Treatments prior to arrival: intubation and epinephrine mgs # Review of Systems General: Reports: ROS unobtainable due to endotracheal tube and Other (code blue) PFS ED PFSH: Medical History Age related osteoporosis Breast cancer Diverticula of colon HTN (hypertension) Lung nodule Surgical History H/O mastectomy Social History Smoking and tobacco status: current every day smoker cigarettes Years cigarettes smoked: 51 [ Other cigarette details: Hx of 0.5 PPD x 51 Years ] Quit status (tobacco): considering quitting Second hand smoke exposure: Yes Smoking risk assessment/counseling performed?: Yes Alcohol intake: never Lives independently: Yes Household members: spouse Marital status: Current occupational status: disabled History of recent travel: No Current gender identity: Female Physical Exam Narrative: EXAM NARRATIVE: code blue Const: OTHER: code blue HENMT: COMMON NORMALS: Normal external nose present HEAD & SCALP: normal to inspection FACE & SINUS: normal facial exam NOSE: Normal external nose present MOUTH: Normal oral and palatal mucosa present OTHER: laryngeal swelling seen on intubation. Eye: OTHER: pupils fixed/dilated. No motion or blink reflex. Neck/C-Spine: GENERAL: Yes normal visual inspection Chest: COMMONS NORMALS: normal inspection of the chest CHEST: Yes Surgical scars present (Chest) OTHER: evidence of surgery from breast cancer. Resp: OTHER: no respiratory effort. No breath sounds prior to intubation. After, there were rales, rhonchi diffusely. Cardio: OTHER: no spontaneous pulse. Good pulse with cpr. Asystole. GI: INSPECTION: Yes abdominal distension OTHER: soft. Distended belly. Back/Pelvis: THORACIC SPINE/UPPER BACK: Yes normal to inspection Extremity: NARRATIVE EXTREMITY EXAM: cool/blue extremities. General pallor. Neuro: VIDHYA COMA SCALE: GCS not evaluated OTHER: unresponsive. GCS III. Skin: COMMON NORMALS: no rashes or lesions noted GENERAL SKIN EXAM: no rashes or lesions noted and pallor MDM - Cardiac Arrest/CPR MDM Narrative: Medical decision making narrative: see HPI for details. Discharge Plan Discharge Patient Disposition: Clinical Impression: Cardiac arrest Condition: Prescriptions: No Action cyclobenzaprine 5 mg tablet 5 mg PO BID RF: 0 gabapentin 300 mg capsule 300 mg PO TID RF: 0 hydrocodone-acetaminophen [[place]] 5-325 mg tablet 1 tab PO Q4H PRN (Reason: Pain) RF: 0 clonazepam [Klonopin] 0.5 mg tablet 0.5 mg PO DAILY PRN (Reason: Blood Pressure) RF: 0 metoprolol tartrate 50 mg tablet 50 mg PO BID RF: 0 omeprazole 20 mg capsule,delayed release(DR/EC) 20 mg PO DAILY RF: 0 cholecalciferol (vitamin D3) 25 mcg (1,000 unit) capsule 25 mcg PO DAILY RF: 0 docusate sodium [Dulcolax Stool Softener (dss)] 100 mg capsule 100 mg PO DAILY RF: 0 polyethylene glycol 3350 [Miralax] 17 gram/dose powder 17 g PO DAILY PRN (Reason: Constipation) RF: 0 diphenhydramine HCl [Benadryl] 25 mg capsule 25 mg PO TID PRN (Reason: Sleep) RF: 0 amoxicillin-pot clavulanate [Augmentin] 875-125 mg tablet 1 tab PO BID 7 Days Qty: 14 RF: 0 Referrals: Lexi Thompson MD [Primary Care Provider] - Coding Level of Care Code ED Fiber Analyst for [facility]
--- NOTE | 2020-02-14 13:57 | PC.CHAP ---
Pastoral Care Encounter/Spiritual Assessment Type of Contact [] Declined property utilization officer visit [] Patient/Family/Request visit [] Outpatient visit [] Follow-up visit [] Physician referral [XX] Code/Alert [] Routine visit [] Staff referral [] Actively dying [] Patient sleeping [] Family support [] [] Out of room [] Palliative care [] [] Receiving care in room [] Pre-surgical visit [] Trauma [] Long length of stay [] ICU visit [] Other: Relational/Emotional Strength [] Patient feels connected with others/family/visitors/staff [] Distress [] Loneliness/isolation [] Abandonment Spirituality of Patient [] Person of Hyun [] Attends Protestant of their Hyun [] Believes in Prayer [] Reads Bible or Muslim materials [] There are Spiritual issues to be addressed Production Line Interventions [XX] Prayer [] Active listening [] Non-anxious presence [] Spiritual/emotional support [] Crisis/trauma care [] Spiritual counseling [] Bereavement support [] Provided bereavement packet [] Provided Bible/devotional materials [] Provided toy/stuffed animal, coloring book to patient or family member [] Provided Communion [] Anointing/[place] [] Salvation [] Completed spiritual assessment [XX] Other: witness to the team's efforts Impact on Illness or Injury [] Angry [] Fearful [] Anxious [] Often cries [] Exhaustion [] Unable to work [] Unable to attend quaker [] Unable to walk/stand [] Unable to read [] Unable to drive [] Unable to eat/drink [] Unable to sleep [] Unable to be with family [] Patient intubated [] Other: Summary: Responded to Lizbeth Rolle at ED. Pt was receiving CPR. I met with Pt's son in the waiting area and then her . Attended conversation of physician with family after pt was pronounced (after at least 2 hours of CPR from , EMT, and ED team). Checked on family and staff a couple of times. Advocated for water bottles for family in ED room. Offered prayer for family. Time spent with patient: total time was probably 30-40 mins (multiple visits)
[2020-02-14 19:39] VITALS: BP 0/0; PULSE 0; RESP 0; O2SAT 0
== END 2020-02-14 19:43 | disposition expired ==
PROVIDERS: Emergency Provider Family Medicine; PCP Family Medicine
DX: I46.9 Cardiac arrest, cause unspecified (principal); Z85.3 Personal history of malignant neoplasm of breast; I10 Essential (primary) hypertension; F17.210 Nicotine dependence, cigarettes, uncomplicated
CPT/HCPCS: 12345; 31500; 99281; 99282; 99285; 99291; J0171